=== PATIENT | male | born 1985 | race Caucasian/White ===

== ENCOUNTER 2023-06-18 13:03 | Inpatient (IN) | payer MEDICAID ==
[2023-06-18] VITALS (26 sets, daily range): BP systolic 96–126; BP diastolic 31–92; PULSE 64–95; RESP 18–39; TEMP 98.3–98.4
[~2023-06-18] VITALS: Ht 180.3 cm; Wt 80.3 kg
[2023-06-18] MEDS ORDERED: ASPIRIN 81MG TABLET PO ONE (13:15)
[2023-06-18] MEDS ORDERED: HEPARIN 5000 UNITS/ML VIAL IV ONE (13:30)
[2023-06-18 13:34] LABS: BASOPHILS % 0.7 % (0.0-2.0); DIFFERENTIAL COMMENT 0; EOSINOPHILS % 0.8 % (0.0-5.0); HEMATOCRIT. 40.2 % (42.0-52.0); HEMOGLOBIN. 13.6 g/dL (14.0-18.0); LYMPHOCYTES % 23.4 % (20.0-50.0); MEAN CORPUSCULAR HGB CONC 33.9 g/dL (31.0-37.0); MEAN CORPUSCULAR VOLUME 103.1 fL (80.0-94.0); MEAN PLATELET VOLUME 7.8 fl (7.4-10.4); MONOCYTES % 13.7 % (2.0-8.0); NEUTROPHILS % 61.4 % (40.0-76.0); PLATELET 160 x1000/uL (130-400); RED CELL DISTRIBUTION WIDTH 14.6 % (11.6-14.6); WHITE BLOOD COUNT 7.3 x1000/uL (4.5-11.0)
[2023-06-18 13:40] LABS: CHLORIDE 104 mEq/L (98-107); INDEX HEMOLYSI 1 (1-3); INDEX ICTERIC 1 (1-4); INDEX LIPEMIC 1 (1-3); POTASSIUM 3.1 mEq/L (3.5-5.1); SODIUM 137 mEq/L (136-145)
[2023-06-18] MEDS ORDERED: IODIXANOL 320MG/ML 100 ML BOTTLE IV ONE (13:42)
[2023-06-18] MEDS ORDERED: HEPARIN 1000 UNITS/ML 10ML ONE ×2 (13:42→13:45)
[2023-06-18 13:44] LABS: INR 1.1; PARTIAL THROMBOPLASTIN TIME 23.7 sec (23.4-31.0); PROTHROMBIN TIME 11.3 sec (9.6-11.0)
[2023-06-18] MEDS ORDERED: TICAGRELOR 90 MG TABLET PO ONE ×2 (13:45→13:52)
[2023-06-18] MEDS ORDERED: FENTANYL CITRATE/PF 50MCG/ML 2ML VIAL ONE ×2 (13:45→14:17)
[2023-06-18] MEDS ORDERED: ATROPINE SULFATE 1MG/10ML SYR ONE (13:46)
[2023-06-18] MEDS ORDERED: MIDAZOLAM HCL 2 MG/2 ML VIAL ONE ×2 (13:46→14:17)
[2023-06-18 13:53] LABS: ALANINE AMINOTRANSFERASE 103 IU/L (13-61); ALBUMIN 3.7 g/dL (3.4-5.0); ASPARTATE AMINOTRANSFERASE 132 IU/L (15-37); CALCIUM 8.6 mg/dL (8.5-10.1); CARBON DIOXIDE 18 mEq/L (21-32); CREATININE 0.9 mg/dL (0.6-1.3); GLUCOSE 111 mg/dL (70-105); NT PRO B-TYPE NATRIURETIC PEP 17 pg/mL (5-125); PROTEIN TOTAL 6.7 g/dL (6.0-8.3); TROPONIN I HIGH SENSITIVITY 40 ng/L (<78); UREA NITROGEN BLOOD 7 mg/dL (7-21)
[2023-06-18] MEDS ORDERED: IODIXANOL 320 MG/ML 150ML BOTTLE IV ONE (14:18)
[2023-06-18] MEDS ORDERED: ADENOSINE 3 MG/ML 2ML VIAL IV ONE (14:38)
[2023-06-18] MEDS ORDERED: NITROPRUSSIDE 50 MG in SODIUM CHLORIDE 0.9% 250 ML IV STA (14:46)
[2023-06-18] MEDS ORDERED: NITROPRUSSIDE 50 MG in DEXT 5% WATER 248 ML IV STA (14:50)
[2023-06-18] MEDS ORDERED: ATROPINE SULFATE 1MG/10ML SYR IV PRN (15:30)
[2023-06-18] MEDS ORDERED: ACETAMINOPHEN 325MG TABLET PO PRN ×3 (15:30→20:45)
[2023-06-18] MEDS ORDERED: AMIODARONE HCL 50MG/ML 3ML VIAL IV ONE (15:39)
[2023-06-18] MEDS ORDERED: POTASSIUM CHLORIDE 20MEQ TABLET SR PO NR ×2 (16:30→20:45)
[2023-06-18] MEDS ORDERED: NITROGLYCERIN OINT 1GM/INCH UDPKT TD PRN (19:15)
[2023-06-18] MEDS: MORPHINE SULFATE 2 MG/ML CPJ (NOT FOR IM USE) IV PRN (19:33)
[2023-06-18 19:53] LABS: TROPONIN I HIGH SENSITIVITY > 125000 ng/L (<78)
[2023-06-18] MEDS ORDERED: LORAZEPAM 2MG/ML CPJ IV PRN (20:45)
[2023-06-18] MEDS ORDERED: ONDANSETRON HCL 4MG/2ML INJ IV PRN (20:45)
[2023-06-18] MEDS ORDERED: ATORVASTATIN CALCIUM 40MG TABLET PO SCH (21:00)
[2023-06-18] MEDS: LEVETIRACETAM 500MG PREMIX 100 ML IV SCH (21:41)
[2023-06-18] MEDS: CHLORDIAZEPOXIDE 25MG CAPSULE PO SCH ×2 (21:41→23:17)
[2023-06-18] MEDS: HYDROCODONE/ACETAMINOPHEN 5/325MG TABLET PO PRN (21:46)
[2023-06-18] MEDS: TICAGRELOR 90 MG TABLET PO SCH (21:46)
[2023-06-18] MEDS: SODIUM CHLORIDE 0.9% INJ 3ML FLUSH IVF SCH (22:00)
[2023-06-18] MEDS ORDERED: MVI, ADULT NO.1 10 ML, FOLIC ACID 1 MG, THIAMINE HCL 100 MG in SODIUM CHLORIDE 0.9% 1,0... IV SCH ×4 (22:00)
[2023-06-19] VITALS (88 sets, daily range): BP systolic 70–142; BP diastolic 30–106; PULSE 75–117; RESP 5–76; TEMP 98.2–100.4
[2023-06-19] MEDS: ZOLPIDEM TARTRATE 5MG TABLET PO PRN ×2 (02:21→23:53)
[2023-06-19] MEDS: MORPHINE SULFATE 2 MG/ML CPJ (NOT FOR IM USE) IV PRN (02:22)
[2023-06-19 05:41] LABS: HEMATOCRIT. 40.4 % (42.0-52.0); HEMOGLOBIN. 13.9 g/dL (14.0-18.0); MEAN CORPUSCULAR HEMOGLOBIN 35.2 pg (28.0-32.0); MEAN CORPUSCULAR HGB CONC 34.4 g/dL (31.0-37.0); MEAN CORPUSCULAR VOLUME 102.4 fL (80.0-94.0); MEAN PLATELET VOLUME 8.1 fl (7.4-10.4); PLATELET 146 x1000/uL (130-400); RED BLOOD CELL COUNT 3.94 mill/uL (4.7-6.1); RED CELL DISTRIBUTION WIDTH 14.6 % (11.6-14.6)
[2023-06-19 05:43] LABS: CHLORIDE 107 mEq/L (98-107); INDEX HEMOLYSI 4 (1-3); INDEX ICTERIC 1 (1-4); INDEX LIPEMIC 1 (1-3); POTASSIUM 3.7 mEq/L (3.5-5.1); SODIUM 136 mEq/L (136-145)
[2023-06-19 05:50] LABS: ALANINE AMINOTRANSFERASE 127 IU/L (13-61); ALBUMIN 3.1 g/dL (3.4-5.0); ASPARTATE AMINOTRANSFERASE 531 IU/L (15-37); BILIRUBIN TOTAL 2.3 mg/dL (0.1-1.0); CALCIUM 8.2 mg/dL (8.5-10.1); CARBON DIOXIDE 22 mEq/L (21-32); CREATININE 0.7 mg/dL (0.6-1.3); GLUCOSE 98 mg/dL (70-105); PHOSPHORUS 2.5 mg/dL (2.5-4.9); PROTEIN TOTAL 6.5 g/dL (6.0-8.3); UREA NITROGEN BLOOD 9 mg/dL (7-21)
[2023-06-19 06:01] LABS: DIFFERENTIAL COMMENT 1
[2023-06-19] MEDS: SODIUM CHLORIDE 0.9% INJ 3ML FLUSH IVF SCH ×3 (06:59→21:06)
[2023-06-19] MEDS: CHLORDIAZEPOXIDE 25MG CAPSULE PO SCH ×3 (06:59→21:04)
[2023-06-19] MEDS ORDERED: CLOPIDOGREL 75MG TABLET PO SCH (08:15)
[2023-06-19] MEDS: PANTOPRAZOLE SODIUM 40 MG/VIAL IV SCH (08:17)
[2023-06-19] MEDS: ASPIRIN 81MG TABLET PO SCH (08:17)
[2023-06-19] MEDS: TICAGRELOR 90 MG TABLET PO SCH (08:18)
[2023-06-19] MEDS: LEVETIRACETAM 500MG PREMIX 100 ML IV SCH ×2 (08:18→21:04)
[2023-06-19] MEDS ORDERED: METOPROLOL SUCCINATE 50MG ER TABLET PO SCH (09:00)
[2023-06-19] MEDS: HYDROCODONE/ACETAMINOPHEN 5/325MG TABLET PO PRN ×2 (10:49→21:05)
[2023-06-19 11:05] LABS: PLATELET ESTIMATE NORMAL
[2023-06-19] MEDS: FUROSEMIDE 40MG/4ML VIAL IVP SCH (15:39)
[2023-06-20] VITALS (18 sets, daily range): BP systolic 77–105; BP diastolic 44–70; PULSE 84–103; RESP 18–39; TEMP 98.8–98.9; O2SAT 98
[2023-06-20] MEDS: SODIUM CHLORIDE 0.9% INJ 3ML FLUSH IVF SCH ×2 (06:18→22:00)
[2023-06-20] MEDS: CHLORDIAZEPOXIDE 25MG CAPSULE PO SCH ×3 (06:18→22:25)
[2023-06-20] MEDS: ASPIRIN 81MG TABLET PO SCH (09:10)
[2023-06-20] MEDS: PANTOPRAZOLE SODIUM 40 MG/VIAL IV SCH (09:10)
[2023-06-20] MEDS: CLOPIDOGREL 75MG TABLET PO SCH (09:11)
[2023-06-20 09:47] LABS: BG BASE EXCESS 3.3 mmol/L (-2.0-2.0); BG CARBOXYHEMOGLOBIN 1.3 % (0.5-1.5); BG HCO3 ACT 25.4 mmol/L (22.0-26.0); BG METHEMOGLOBIN 0.2 % (0.0-1.5); BG OXYGEN SATURATION 94.9 % (92.0-98.5); BG OXYHEMOGLOBIN 93.5 % (94.0-97.0); BG PCO2 31.7 mmHg (35.0-45.0); BG PH 7.522 (7.350-7.450); BG PO2 74.4 mmHg (75.0-100.0); BG SAMPLE SITE RIGHT RADIAL; BG TOTAL HEMOGLOBIN 14.5 g/dL (12.0-18.0); BG VENT MODE NASAL CANNULA
[2023-06-20] MEDS: LEVETIRACETAM 500MG PREMIX 100 ML IV SCH ×2 (10:14→22:26)
[2023-06-20] MEDS: SPIRONOLACTONE 25MG TABLET PO SCH (11:36)
[2023-06-20] MEDS: FUROSEMIDE 40MG/4ML VIAL IVP SCH (11:37)
[2023-06-20] MEDS ORDERED: NALOXONE HCL 0.4MG/ML VIAL IV PRN (12:45)
[2023-06-20 14:12] LABS: CHLORIDE 101 mEq/L (98-107); INDEX HEMOLYSI 1 (1-3); INDEX ICTERIC 2 (1-4); INDEX LIPEMIC 1 (1-3); SODIUM 135 mEq/L (136-145)
[2023-06-20 14:22] LABS: ALANINE AMINOTRANSFERASE 70 IU/L (13-61); ALBUMIN 2.8 g/dL (3.4-5.0); ASPARTATE AMINOTRANSFERASE 168 IU/L (15-37); BILIRUBIN TOTAL 2.1 mg/dL (0.1-1.0); CALCIUM 8.3 mg/dL (8.5-10.1); CARBON DIOXIDE 28 mEq/L (21-32); CREATININE 0.8 mg/dL (0.6-1.3); PROTEIN TOTAL 6.3 g/dL (6.0-8.3); UREA NITROGEN BLOOD 10 mg/dL (7-21)
[2023-06-20] MEDS: AZITHROMYCIN 500 MG TABLET PO SCH (14:39)
[2023-06-20 14:46] LABS: POTASSIUM 2.5 mEq/L (3.5-5.1)
[2023-06-20] MEDS ORDERED: CEFTRIAXONE 1,000 MG in DEXTROSE 5% WATER 50 ML IV SCH (15:00)
[2023-06-20 15:06] LABS: GLUCOSE 90 mg/dL (70-105)
[2023-06-20] MEDS ORDERED: POTASSIUM CHLORIDE INJ 40 MEQ in DEXT 5% WATER 250 ML IV ONE (15:45)
[2023-06-20] MEDS ORDERED: POTASSIUM CHLORIDE 20MEQ TABLET SR PO NR ×2 (15:45→18:00)
[2023-06-20] MEDS ORDERED: KCL 20MEQ/100ML X 2 FOR TOTAL KCL 40MEQ/200ML IV SCH (16:00)
[2023-06-20 18:09] LABS: CLARITY URINE CLEAR (CLEAR); COLOR URINE YELLOW (YELLOW); GLUCOSE URINE NEGATIVE (NEGATIVE); KETONES URINE NEGATIVE (NEGATIVE); LEUKOCYTE ESTERASE URINE NEGATIVE (NEGATIVE); NITRITE URINE NEGATIVE (NEGATIVE); OCCULT BLOOD URINE NEGATIVE (NEGATIVE); PH URINE 7.5 (4.5-8.0); PROTEIN URINE NEGATIVE (NEGATIVE); SPECIFIC GRAVITY URINE 1.004 (1.005-1.030)
[2023-06-20] MEDS: IPRATROPIUM/ALBUTEROL 0.5-3(2.5)MG/3ML NEB HHN SCH (20:17)
[2023-06-20] MEDS: FAMOTIDINE 20MG/2ML VIAL IV SCH (22:25)
[2023-06-20] MEDS: ZOLPIDEM TARTRATE 5MG TABLET PO PRN (22:25)
[2023-06-21] VITALS (7 sets, daily range): BP systolic 95–123; BP diastolic 52–75; PULSE 91–96; RESP 12–36; TEMP 97.6–98; O2SAT 92–99
[2023-06-21] MEDS: IPRATROPIUM/ALBUTEROL 0.5-3(2.5)MG/3ML NEB HHN SCH ×3 (02:25→20:17)
[2023-06-21] MEDS: SODIUM CHLORIDE 0.9% INJ 3ML FLUSH IVF SCH ×3 (06:00→22:00)
[2023-06-21] MEDS: CHLORDIAZEPOXIDE 25MG CAPSULE PO SCH ×3 (06:56→22:00)
[2023-06-21] MEDS: LEVETIRACETAM 500MG PREMIX 100 ML IV SCH (08:18)
[2023-06-21] MEDS: FUROSEMIDE 40MG/4ML VIAL IVP SCH (08:18)
[2023-06-21] MEDS: AZITHROMYCIN 500 MG TABLET PO SCH (08:18)
[2023-06-21] MEDS: FAMOTIDINE 20MG/2ML VIAL IV SCH ×2 (08:18→21:00)
[2023-06-21] MEDS: CLOPIDOGREL 75MG TABLET PO SCH (08:18)
[2023-06-21] MEDS: ASPIRIN 81MG TABLET PO SCH (08:18)
[2023-06-21] MEDS: SPIRONOLACTONE 25MG TABLET PO SCH (09:23)
[2023-06-21 11:35] LABS: CALCIUM 9.6 mg/dL (8.5-10.1); CHLORIDE 105 mEq/L (98-107); INDEX HEMOLYSI 1 (1-3); INDEX ICTERIC 1 (1-4); INDEX LIPEMIC 1 (1-3); POTASSIUM 3.1 mEq/L (3.5-5.1); SODIUM 139 mEq/L (136-145)
[2023-06-21 11:36] LABS: BASOPHILS % 0.4 % (0.0-2.0); DIFFERENTIAL COMMENT 0; EOSINOPHILS % 2.3 % (0.0-5.0); HEMATOCRIT. 44.3 % (42.0-52.0); LYMPHOCYTES % 16.4 % (20.0-50.0); MEAN CORPUSCULAR HEMOGLOBIN 34.8 pg (28.0-32.0); MEAN CORPUSCULAR HGB CONC 33.8 g/dL (31.0-37.0); MEAN CORPUSCULAR VOLUME 103.1 fL (80.0-94.0); MEAN PLATELET VOLUME 8.7 fl (7.4-10.4); MONOCYTES % 11.7 % (2.0-8.0); NEUTROPHILS % 69.2 % (40.0-76.0); PLATELET 145 x1000/uL (130-400); RED BLOOD CELL COUNT 4.29 mill/uL (4.7-6.1); RED CELL DISTRIBUTION WIDTH 14.6 % (11.6-14.6); WHITE BLOOD COUNT 6.3 x1000/uL (4.5-11.0)
[2023-06-21 11:39] LABS: CARBON DIOXIDE 26 mEq/L (21-32); CREATININE 0.8 mg/dL (0.6-1.3); GLUCOSE 124 mg/dL (70-105); PHOSPHORUS 3.6 mg/dL (2.5-4.9); UREA NITROGEN BLOOD 11 mg/dL (7-21)
[2023-06-21] MEDS: POTASSIUM CHLORIDE 20MEQ TABLET SR PO SCH ×2 (12:46→16:42)
[2023-06-21] MEDS: LOPERAMIDE HCL 2MG CAPSULE PO PRN (16:45)
[2023-06-21] MEDS: LEVETIRACETAM 500MG/5ML CUP PO SCH (21:00)
[2023-06-22] VITALS (9 sets, daily range): BP systolic 78–120; BP diastolic 48–73; PULSE 76–97; RESP 11–25; TEMP 98–99.6; O2SAT 97–98
[2023-06-22] MEDS: IPRATROPIUM/ALBUTEROL 0.5-3(2.5)MG/3ML NEB HHN SCH ×3 (01:35→13:09)
[2023-06-22] MEDS: SODIUM CHLORIDE 0.9% INJ 3ML FLUSH IVF SCH ×3 (06:00→21:19)
[2023-06-22] MEDS: CHLORDIAZEPOXIDE 25MG CAPSULE PO SCH ×3 (07:04→21:17)
[2023-06-22 07:15] LABS: POTASSIUM 2.9 mEq/L (3.5-5.1)
[2023-06-22] MEDS: LEVETIRACETAM 500MG/5ML CUP PO SCH ×2 (08:46→21:16)
[2023-06-22] MEDS: ASPIRIN 81MG TABLET PO SCH (08:46)
[2023-06-22] MEDS: FAMOTIDINE 20MG/2ML VIAL IV SCH (08:47)
[2023-06-22] MEDS: CLOPIDOGREL 75MG TABLET PO SCH (08:47)
[2023-06-22] MEDS: LOPERAMIDE HCL 2MG CAPSULE PO PRN (08:54)
[2023-06-22] MEDS: POTASSIUM CHLORIDE 20MEQ TABLET SR PO SCH ×3 (09:53→14:39)
[2023-06-22] MEDS ORDERED: IPRATROPIUM/ALBUTEROL 0.5-3(2.5)MG/3ML NEB HHN PRN (14:30)
[2023-06-22] MEDS ORDERED: SPIRONOLACTONE 25MG TABLET PO SCH (16:00)
[2023-06-22] MEDS: SPIRONOLACTONE 25MG TABLET PO SCH (17:19)
[2023-06-22] MEDS: FAMOTIDINE 20MG TABLET PO SCH (21:19)
[2023-06-23] VITALS (8 sets, daily range): BP systolic 89–107; BP diastolic 64–77; PULSE 79–92; RESP 18–22; TEMP 97.7–99
[2023-06-23] MEDS: CHLORDIAZEPOXIDE 25MG CAPSULE PO SCH ×2 (05:58→14:58)
[2023-06-23] MEDS: SODIUM CHLORIDE 0.9% INJ 3ML FLUSH IVF SCH ×3 (05:59→21:37)
[2023-06-23] MEDS: ASPIRIN 81MG TABLET PO SCH (08:56)
[2023-06-23] MEDS: SPIRONOLACTONE 25MG TABLET PO SCH (08:59)
[2023-06-23] MEDS: CLOPIDOGREL 75MG TABLET PO SCH (08:59)
[2023-06-23] MEDS: FAMOTIDINE 20MG TABLET PO SCH ×2 (09:00→21:37)
[2023-06-23] MEDS: LEVETIRACETAM 500MG/5ML CUP PO SCH ×2 (09:00→21:37)
[2023-06-23 14:57] LABS: CHLORIDE 106 mEq/L (98-107); INDEX HEMOLYSI 1 (1-3); INDEX ICTERIC 1 (1-4); INDEX LIPEMIC 1 (1-3); SODIUM 137 mEq/L (136-145)
[2023-06-23] MEDS: FUROSEMIDE 20MG TABLET PO SCH (14:58)
[2023-06-23 15:03] LABS: CALCIUM 9.8 mg/dL (8.5-10.1); CARBON DIOXIDE 26 mEq/L (21-32); CREATININE 0.7 mg/dL (0.6-1.3); GLUCOSE 87 mg/dL (70-105); UREA NITROGEN BLOOD 10 mg/dL (7-21)
[2023-06-23] MEDS ORDERED: ZOLPIDEM TARTRATE 5MG TABLET PO PRN (21:30)
[2023-06-23] MEDS ORDERED: IBUPROFEN 600MG TABLET PO PRN (22:00)
[2023-06-24 04:23] VITALS: BP 96/74; PULSE 78; RESP 15; TEMP 98.3
[2023-06-24] MEDS: SODIUM CHLORIDE 0.9% INJ 3ML FLUSH IVF SCH (06:08)
[2023-06-24 08:11] VITALS: BP 93/74; PULSE 76; TEMP 98.7
[2023-06-24] MEDS: LEVETIRACETAM 500MG/5ML CUP PO SCH (08:29)
[2023-06-24] MEDS: FAMOTIDINE 20MG TABLET PO SCH (08:29)
[2023-06-24] MEDS: ASPIRIN 81MG TABLET PO SCH (08:29)
[2023-06-24] MEDS: SPIRONOLACTONE 25MG TABLET PO SCH (08:32)
[2023-06-24] MEDS: CLOPIDOGREL 75MG TABLET PO SCH (08:32)
[2023-06-24] MEDS: FUROSEMIDE 20MG TABLET PO SCH (08:32)
[2023-06-24] MEDS ORDERED: MECLIZINE 25MG TABLET PO NR (13:15)
[2023-06-24 13:55] VITALS: BP 95/74; PULSE 88; RESP 16; TEMP 98.3
[2023-06-24 14:19] VITALS: BP 95/74; PULSE 88; TEMP 98.3; O2SAT 98
== END 2023-06-24 16:35 | disposition home or self-care (01) | DRG 174 ==
LOC: ER 14:04 → CCL 15:18 → EDBD 15:45 → CVICU 15:45 → 3WST 06-19 23:06
PROVIDERS: ADMIT Internal Medicine; ATTEND Internal Medicine
PROC: 4A023N7 Measurement of Cardiac Sampling and Pressure, Left Heart, Percutaneous Approach (ICD-10-PCS; principal; 2023-06-18)
PROC: 027034Z Dilation of Coronary Artery, One Artery with Drug-eluting Intraluminal Device, Percutaneous Approach (ICD-10-PCS; 2023-06-18)
PROC: 02C03ZZ Extirpation of Matter from Coronary Artery, One Artery, Percutaneous Approach (ICD-10-PCS; 2023-06-18)
PROC: B240ZZ3 Ultrasonography of Single Coronary Artery, Intravascular (ICD-10-PCS; 2023-06-18)
PROC: B211YZZ Fluoroscopy of Multiple Coronary Arteries using Other Contrast (ICD-10-PCS; 2023-06-18)
DX: I21.09 ST elevation (STEMI) myocardial infarction involving other coronary artery of anterior wall (principal); J96.01 Acute respiratory failure with hypoxia; I50.23 Acute on chronic systolic (congestive) heart failure; E44.1 Mild protein-calorie malnutrition; J18.9 Pneumonia, unspecified organism; R56.9 Unspecified convulsions; K76.0 Fatty (change of) liver, not elsewhere classified; I11.0 Hypertensive heart disease with heart failure; E87.6 Hypokalemia; F10.139 Alcohol abuse with withdrawal, unspecified; I25.10 Atherosclerotic heart disease of native coronary artery without angina pectoris; D64.9 Anemia, unspecified; Z68.24 Body mass index [BMI] 24.0-24.9, adult; Z20.822 Contact with and (suspected) exposure to COVID-19; F17.210 Nicotine dependence, cigarettes, uncomplicated; F32.A Depression, unspecified; Z59.00 Homelessness unspecified; Z63.4 Disappearance and death of family member; Z82.49 Family history of ischemic heart disease and other diseases of the circulatory system; Z88.6 Allergy status to analgesic agent
CPT/HCPCS: 36415; 36600; 71045; 73070; 76700; 80048; 80051; 80053; 81003; 82375; 82805; 83735; 83880; 84100; 84145; 84484; 85025; 85347; 86850; 86900; 87426; 93005; 93306; 94640; 97161; 97535; 99291; C9113; J0153; J0282; J0461; J0696; J1644; J1940; J1953; J2250; J2270; J3010; J3411; J3480; J3490; J7030; J7050; J7060; J8597; Q9967; J8499